=== PATIENT | female | born 1985 | race Two or more races ===

== ENCOUNTER 2025-10-04 10:26 | Inpatient (IN) | payer MEDICAID, OTHER ==
[~2025-10-04] VITALS: Ht 162.6 cm; Wt 88.3 kg
--- NOTE | 2025-10-04 11:27 | ED.PDOC ---
SOB-HPI HPI Comments 40y F who presents to the ED for chief complaint of shortness of breath. Pt states she has been having shortness of breath, upper back pain, chills, chest tightness, and generalized malaise for the past few weeks getting progressively worse. Pt states she started to have bruising last Saturday on her legs and got worried and came today to the ED for further evaluation. Pt in the ED, has otherwise stable vitals. Pt denies sick contacts. Pt denies any other symptoms at this time. Chief Complaint: Shortness of Breath Time Seen by MD: 11:19 Reviewed notes: Medications, Allergies Information Source: Patient Mode of Arrival: Ambulatory Brought in by: self Severity: Moderate Timing: Days, Weeks Duration: Since onset Context: At Rest PE Risk Factors: None History of: None Prehospital treatment: None Modifying Factors: Laying flat Associated Signs and Symptoms: Other (chills,) Past Medical History PAST MEDICAL HISTORY: High Lipids Surgical History: Denies all surgeries DECONTAMINATOR History: Denies all DECONTAMINATOR Hx Family History Family History: Family hx of DM Social History Smoker: Non-Smoker Alcohol: Denies ETOH Use Drugs: Denies Drug Use Lives In: Home Constitutional: reports: chills, weakness; denies: diaphoresis, fatigue, fever, malaise, sweats, others EENTM: denies: blurred vision, double vision, ear bleeding, ear discharge, ear drainage, ear pain, ear ringing, eye pain, eye redness, hearing loss, mouth pain, mouth swelling, nasal discharge, nose bleeding, nose congestion, nose pain, photophobia, tearing, throat pain, throat swelling, voice changes, others Respiratory: reports: shortness of breath; denies: cough, hemoptysis, orthopnea, SOB at rest, SOB with excertion, stridor, wheezing, others Cardiovascular: denies: chest pain, dizzy spells, diaphoresis, Dyspnea on exertion, edema, irregular heart beat, left arm pain, lightheadedness, palpitations, PND, syncope, others Gastrointestinal: denies: abdomen distended, abdominal pain, blood streaked bowels, constipated, diarrhea, dysphagia, difficulty swallowing, hematemesis, melena, nausea, poor appetite, poor fluid intake, rectal bleeding, rectal pain, vomiting, others Genitourinary: denies: abnormal vagina bleeding, burning, dyspareunia, dysuria, flank pain, frequency, hematuria, incontinence, pain, , vagina discharge, urgency, others Neurological: reports: dizziness; denies: fainting, headache, left sided numbness, left sided weakness, numbness, paresthesia, pre-existing deficit, right sided numbness, right sided weakness, seizure, speech problems, tingling, tremors, weakness, others Musculoskeletal: denies: back pain, gout, joint pain, joint swelling, muscle pain, muscle stiffness, neck pain, others Integumetry: denies: bruises, change in color, change in hair/nails, dryness, laceration, lesions, lumps, rash, wounds, others Allergic/Immunocompromised: denies: Difficulty Healing, Frequent Infections, Hives, Itching, others Hematologic/Lymphatic: denies: anemia, blood clots, easy bleeding, easy bruising, swollen glands, others Endocrine: denies: excessive hunger, excessive sweating, excessive thirst, excessive urination, flushing, intolerance to cold, intolerance to heat, unex plained weight gain, unexplained weight loss, others Psychiatric: denies: anxiety, bipolar disorder, depression, hopeless, panic disorder, schizophrenia, sleepless, suicidal, others All Other Systems: Reviewed and Negative Physical Exam General Appearance: Moderate Distress HEENT: Pale Conjuntivae (L), Pale Conjuntivae (R), Pharynx Normal, TMs Normal Neck: Full Range of Motion, Non-Tender, Normal, Normal Inspection Respiratory: Chest Non-Tender, Lungs Clear, No Accessory Muscle Use, No Respi ratory Distress, Normal Breath Sounds Cardiovascular: No Edema, No JVD, No Murmur, No Gallop, Normal Peripheral Pulses, Regular Rate/Rhythm Breast Exam: Deferred Gastrointestinal: No Organomegaly, Non Tender, No Pulsatile Mass, Normal Bowel Sounds, Soft Genitalia: Deferred Pelvic: Deferred Rectal: Deferred Extremities: No calf tenderness, Normal capillary refill, Normal inspection, Normal range of motion, Non-tender, No pedal edema Musculoskeletal : Apperance: Normal Neurologic: Alert, supplier diversity director II-XII nml as Tested, No Motor Deficits, Normal Affect, Normal Mood, No Sensory Deficits Cerebellar Function: Normal Reflexes: Normal Skin: Bruises, Dry, Pallor, Warm Lymphatic: No Adenopathy Was a procedure done? Was a procedure done?: No Differential Dx Differential Diagnosis: Asthma, Bronchitis, CHF, COPD, Pneumonia, Respiratory Distress, Pharyngitis, URI Comments uti, dehydration, anemia, influenza A and B, X-Ray, Labs, Meds, VS Vital Signs Date Time Temp Pulse Resp B/P (MAP) Pulse Ox O2 Delivery O2 Flow Rate FiO2 10/04/25 13:04 97.8 89 16 143/62 (89) 99 97.8 10/04/25 13:01 16 99 Room Air* 0 21 10/04/25 10:29 98.3 98 20 121/82 97 98.3 Lab Test 10/04/25 12:23 10/04/25 11:10 Range/Units Troponin I High Sensitivity < 3 L < 3 L </=34 ng/L White Blood Count 10.0 4.4-10.8 10^3/uL Red Blood Count 3.52 L 4.0-5.20 10^6/uL Hemoglobin 11.1 L 12.2-16.2 g/dL Hematocrit 33.0 L 36.0-46.0 % Mean Corpuscular Volume 93.7 80.0-100.0 fL Mean Corpuscular Hemoglobin 31.6 28.0-32.0 pg Mean Corpuscular Hemoglobin Concent 33.7 32.0-36.0 g/dL Red Cell Distribution Width 15.1 H 11.8-14.3 % Platelet Count 205 140-450 10^3/uL Mean Platelet Volume 6.7 L 6.9-10.8 fL Neutrophils (%) (Auto) 69.5 37.0-80.0 % Lymphocytes (%) (Auto) 22.5 10.0-50.0 % Monocytes (%) (Auto) 4.9 0.0-12.0 % Eosinophils (%) (Auto) 2.4 0.0-7.0 % Basophils (%) (Auto) 0.7 0.0-2.0 % Neutrophils # (Auto) 7.0 1.6-8.6 10 ^3/uL Lymphocytes # (Auto) 2.3 0.4-5.4 10 ^3/uL Monocytes # (Auto) 0.5 0-1.3 10 ^3/uL Eosinophils # (Auto) 0.2 0-0.8 10 ^3/uL Basophils # (Auto) 0.1 0-0.2 10 ^3/uL Nucleated Red Blood Cells 0.0 % Prothrombin Time 13.1 H 9.3-11.8 sec Prothrombin Time INR 1.26 H 0.9-1.15 Activated Partial Thromboplast Time 30.9 24.5-34.5 SEC D-Dimer, Quantitative 1.08 H 0.0-0.49 mg/L FEU Sodium Level 136 136-145 mmol/L Potassium Level 3.3 L 3.5-5.1 mmol/L Chloride Level 102 98-107 mmol/L Carbon Dioxide Level 26 20-31 mmol/L Anion Gap 8 5-15 Blood Urea Nitrogen 8 L 9-23 mg/dL Creatinine 0.82 0.550-1.02 mg/dL Glomerular Filtration Rate Calc 93 >90 mL/min BUN/Creatinine Ratio 9.8 L 10.0-20.0 Serum Glucose 105 74-106 mg/dL Calcium Level 8.8 8.7-10.4 mg/dL PROCEDURE(s): CXR2 - CHEST TWO VIEWS ROUTINE IMPRESSION: No pulmonary airspace consolidation. The patient's CBC is within normal limits The chemistry panel shows hypokalemia at 3.3 The troponin level is within normal limits. The patient is being admitted at this time The patient understands and agrees with the management. The D-dimer is 1.08 Because of the elevated D-dimer we did do a CAT scan of the chest to rule out PE. The patient is still symptomatic but the CAT scan is negative. The patient is being admitted at this time Images Reviewed?: Images reviewed and evaluated by me Time of 1ST Reevaluation: 11:50 Reevaluation 1ST: Unchanged Patient Education/Counseling: Diagnosis, Treatment, Prognosis Family Education/Counseling: Diagnosis, Treatment, Prognosis SEPSIS Sepsis Screen Date sepsis recognized/suspect: Oct 04, 2025 Time Sepsis recognized/suspect: 1027 Recent Procedure: No On Antibiotic Therapy: No Respiratory Rate >20: No Heart Rate >90: Yes Temp<36 C (96.8 F) or >38.3 C: No SBP <90 or MAP <65 mmHG: No New Acute Mental Status Change: No Is the patient on CPAP, BIPAP,: No Physician Orders Urinalysis (10/04/25 10:58) Chest Two Views Routine (10/04/25 10:58) Electrocardigram (10/04/25 10:58) Troponin-I Hs (10/04/25 13:58) Electrocardigram (10/04/25 11:58) Electrocardigram (10/04/25 13:58) Ct Angio Chest Contrast (10/04/25 12:27) Vital Signs Date Time Temp Pulse Resp B/P (MAP) Pulse Ox O2 Delivery O2 Flow Rate FiO2 10/04/25 13:04 97.8 89 16 143/62 (89) 99 97.8 10/04/25 13:01 16 99 Room Air* 0 21 10/04/25 10:29 98.3 98 20 121/82 97 98.3 Laboratory Tests Test 10/04/25 11:10 White Blood Count 10.0 10^3/uL (4.4-10.8) Departure 1 Departure Time of Disposition: 11:55 Impression: Primary Impression: Acute chest pain Disposition: ADMITTED INPATIENT Admit to: Tele Condition: Fair Critical Care Note Critical Care Time?: Yes (45 min-critical care time only) Stability Stability form required: Yes Unstable for transfer: Telemetry monitoring (Telemetry monitoring required), ED Physician Assesment (Clinical assesment) Heart Score Heart Score: Heart Score Response (Comments) Value History N/A 0 EKG N/A 0 Age N/A 0 Risk Factors N/A 0 Troponin N/A 0 Total 0 I personally scribed for CHRISTINA THURSTON MD ([email or web address]) on 10/04/25 at 11:27. Electronically submitted by Chiara Piña ([facility] I personally scribed for CHRISTINA THURSTON MD ([email or web address]) on 10/04/25 at 11:37. Electronically submitted by Chiara Piña ([employer]). CHRISTINA THURSTNO MD Oct 04, 2025 11:27
[2025-10-04 11:29] LABS: Hematocrit 33.0 % (36.0-46.0); Hemoglobin 11.1 g/dL (12.2-16.2); Mean Corpuscular Hemoglobin 31.6 pg (28.0-32.0); Mean Corpuscular Volume 93.7 fL (80.0-100.0); Nucleated Red Blood Cells % 0.0 %
--- NOTE | 2025-10-04 11:31 | DVH ---
CHEST RADIOGRAPH Indication: CP Technique: XY CHEST TWO VIEWS ROUTINE Comparison: None FINDINGS: The cardiac silhouette is unremarkable. The lungs demonstrate no pulmonary airspace consolidation. The pulmonary vasculature is unremarkable. There is no pleural effusion. There is no pneumothorax. IMPRESSION: No pulmonary airspace consolidation.
[2025-10-04 11:36] LABS: Chloride 102 mmol/L (98-107); Sodium 136 mmol/L (136-145)
[2025-10-04 11:37] LABS: Anion Gap 8 (5-15); Carbon Dioxide 26 mmol/L (20-31)
[2025-10-04 11:38] LABS: Calcium 8.8 mg/dL (8.7-10.4)
[2025-10-04 11:42] LABS: BUN/Creatinine Ratio 9.8 (10.0-20.0); Glucose 105 mg/dL (74-106)
[2025-10-04 11:46] LABS: Blood Urea Nitrogen 8 mg/dL (9-23); Potassium 3.3 mmol/L (3.5-5.1)
[2025-10-04 11:53] LABS: INR 1.26 (0.9-1.15); Partial Thromboplastin Time 30.9 SEC (24.5-34.5); Prothrombin Time 13.1 sec (9.3-11.8)
[2025-10-04 13:01] VITALS: RESP 16; O2SAT 99
[2025-10-04] MEDS: IOHEXOL 350 MG/ML 100ML IJ ONE (13:08)
--- NOTE | 2025-10-04 13:27 | DVH ---
CLINICAL INFORMATION: Shortness of breath. TECHNIQUE: Axial CTA images of the chest were obtained after the uneventful administration of 100 mL of Omnipaque 350 IV contrast. Coronal and sagittal reformatted images and MIP images were obtained, reviewed, and stored. One or more of the following dose reduction techniques were used: Automated exposure control. Adjustment of mA and/or kV according to patient size. CTDIvol = 21.59 mGy DLP = 728.69 mGy-cm COMPARISON: XY CHEST TWO VIEWS ROUTINE on DOS: 10/04/25 FINDINGS: Pulmonary arteries: Limited evaluation for pulmonary embolism due to suboptimal contrast opacification of the pulmonary arteries and respiratory motion artifact. No central pulmonary embolism visualized. Can not exclude lobar, segmental, or subsegmental pulmonary emboli. Aorta: No aneurysm or evidence of dissection. Cardiac: Heart size is within normal limits. [id number] coronary artery calcification. Mediastinum/melissa: No mass or adenopathy. Lungs: Respiratory motion artifact limits evaluation. Scattered areas of subsegmental atelectasis are seen. No focal consolidation, pneumothorax, or pleural effusion. Chest wall: No mass or other abnormality. Upper abdomen: Hepatic steatosis. Multiple very small subcentimeter low- attenuation lesions in the liver, possibly small cysts or biliary hamartomas, but too small to characterize. Bones: No acute fracture or suspicious intraosseous lesions. IMPRESSION: 1. Limited evaluation for pulmonary embolism for the reasons described above. No central pulmonary embolism visualized. Can not exclude lobar, segmental, or subsegmental pulmonary emboli. 2. Otherwise, no acute disease in the chest given the limitations of the examination. 3. Hepatic steatosis. 4. Additional findings as detailed above.
[2025-10-04 14:19] LABS: Urine Protein, UAD 3+ (Negative); Urine WBC Clumps PRESENT /hpf (None Seen)
--- NOTE | 2025-10-04 15:24 | DVHHP2 ---
History of Present Illness History of Present Illness A 40-year-old female with no significant PMHx presents with 2 weeks of malaise, shortness of breath, declining functional status, upper back pain, and chills. She states she came to the ED because she noticed new bruising on her back and legs starting Saturday (2 days ago). She also reports metrorrhagia: her LMP was the first week of September and lasted 7 days No recent trauma, medications, anticoagulants, supplements, or known bleeding disorders. ED Course CBC showed anemia (Hgb 11.1), MCV 93.7, MCH 31, platelets 205. Coagulation panel: PT mildly abnormal at 13.1, INR 1.26. UA showed protein 3+, blood 3+, bilirubin+, leukocyte esterase+, >1000 RBCs, consistent with hematuria and possible UTI. CMP: mild hypokalemia, normal creatinine. CTA chest: no central PE, no acute intrathoracic abnormality, EKG unrevealing. urine test pending Past Medical History No known chronic medical conditions. No surgeries. No medications. No known drug allergies. No prior similar episodes. Patient has 6 children she denies any miscarriages Social History No tobacco, alcohol, or drug use per patient. Lives at home. No primary care provider. Review of Systems Positive for bruising, metrorrhagia, malaise, chills, shortness of breath. Negative for fevers, syncope, gum bleeding, epistaxis, easy bleeding after minor cuts. Review of Systems Allergies: Coded Allergies: NO KNOWN ALLERGIES (Unverified , 10/04/25) Medications Current Medications Medications Dose Ordered Sig/Dinora Route Start Time Stop Time Status Last Admin Dose Admin Ceftriaxone Sodium 50 ml @ 100 mls/hr DAILY@09 IV 10/04/25 15:00 UNV Acetaminophen 325 mg Q4HP PRN PO 10/04/25 15:15 UNV Exam Vital Signs Vital Signs Date Time Temp Pulse Resp B/P (MAP) Pulse Ox O2 Delivery O2 Flow Rate FiO2 10/04/25 13:04 97.8 89 16 143/62 (89) 99 97.8 10/04/25 13:01 Room Air* 0 21 Exam General: Alert, oriented 3, tired appearing but non-toxic. HEENT: No scleral icterus, no conjunctival pallor, oropharynx moist. Neck: No LAD. CV: RRR, no murmurs, rubs, or gallops. Resp: CTAB, no wheezing/rales. Abdomen: Soft, NT/ND, no organomegaly. Back/Extremities: Multiple ecchymoses on lower back and bilateral legs in different stages of evolution. No petechiae. No edema. Skin: Warm, dry. Neuro: Nonfocal. Labs/Xrays Labs Test 10/04/25 13:47 10/04/25 12:23 10/04/25 11:10 Range/Units Urine Color Dark-orange Yellow Urine Clarity Ex.turbid Clear Urine pH 6.0 5.0-9.0 Urine Specific [place] 1.028 1.001-1.035 Urine Protein 3+ H Negative Urine Ketones Negative Negative Urine Blood 3+ H Negative /uL Urine Nitrite Negative Negative Urine Bilirubin 2+ H Negative Urine Urobilinogen 4 H Negative mg/dL Urine Leukocyte Esterase 2+ Negative /uL Urine RBC 1186 0 - 4 /hpf Urine WBC Clumps Present None Seen /hpf Urine Microscopic WBC 116 H 0-5 /HPF Urine Squamous Epithelial Cells Many <5 /hpf Urine Bacteria Few H None Seen /hpf Urine Mucus Few None Seen Urine Glucose Trace Normal mg/dL Troponin I High Sensitivity < 3 L </=34 ng/L White Blood Count 10.0 4.4-10.8 10^3/uL Red Blood Count 3.52 L 4.0-5.20 10^6/uL Hemoglobin 11.1 L 12.2-16.2 g/dL Hematocrit 33.0 L 36.0-46.0 % Mean Corpuscular Volume 93.7 80.0-100.0 fL Mean Corpuscular Hemoglobin 31.6 28.0-32.0 pg Mean Corpuscular Hemoglobin Concent 33.7 32.0-36.0 g/dL Red Cell Distribution Width 15.1 H 11.8-14.3 % Platelet Count 205 140-450 10^3/uL Mean Platelet Volume 6.7 L 6.9-10.8 fL Neutrophils (%) (Auto) 69.5 37.0-80.0 % Lymphocytes (%) (Auto) 22.5 10.0-50.0 % Monocytes (%) (Auto) 4.9 0.0-12.0 % Eosinophils (%) (Auto) 2.4 0.0-7.0 % Basophils (%) (Auto) 0.7 0.0-2.0 % Neutrophils # (Auto) 7.0 1.6-8.6 10 ^3/uL Lymphocytes # (Auto) 2.3 0.4-5.4 10 ^3/uL Monocytes # (Auto) 0.5 0-1.3 10 ^3/uL Eosinophils # (Auto) 0.2 0-0.8 10 ^3/uL Basophils # (Auto) 0.1 0-0.2 10 ^3/uL Nucleated Red Blood Cells 0.0 % Prothrombin Time 13.1 H 9.3-11.8 sec Prothrombin Time INR 1.26 H 0.9-1.15 Activated Partial Thromboplast Time 30.9 24.5-34.5 SEC D-Dimer, Quantitative 1.08 H 0.0-0.49 mg/L FEU Sodium Level 136 136-145 mmol/L Potassium Level 3.3 L 3.5-5.1 mmol/L Chloride Level 102 98-107 mmol/L Carbon Dioxide Level 26 20-31 mmol/L Anion Gap 8 5-15 Blood Urea Nitrogen 8 L 9-23 mg/dL Creatinine 0.82 0.550-1.02 mg/dL Glomerular Filtration Rate Calc 93 >90 mL/min BUN/Creatinine Ratio 9.8 L 10.0-20.0 Serum Glucose 105 74-106 mg/dL Calcium Level 8.8 8.7-10.4 mg/dL SEPSIS Sepsis Screen Date sepsis recognized/suspect: Oct 04, 2025 Time Sepsis recognized/suspect: 1303 Recent Procedure: No On Antibiotic Therapy: No Respiratory Rate >20: No Heart Rate >90: No Temp<36 C (96.8 F) or >38.3 C: No SBP <90 or MAP <65 mmHG: No New Acute Mental Status Change: No Is the patient on CPAP, BIPAP,: No Physician Orders Chest Two Views Routine (10/04/25 10:58) Electrocardigram (10/04/25 10:58) Electrocardigram (10/04/25 11:58) Electrocardigram (10/04/25 13:58) Ct Angio Chest Contrast (10/04/25 12:27) Admit (10/04/25 14:54) Code Status (10/04/25 14:54) Vital Signs .PER UNIT PROTOCOL (10/04/25 14:54) Review Orders With Adm.Md (10/04/25 14:54) Notify Md Of Changes From Base (10/04/25 14:54) Advance Directive (10/04/25 14:54) Patient Condition (10/04/25 14:54) Allergies (10/04/25 14:54) Oxygen By Nasal Cannula (10/04/25 14:54) Stat Ekg For Chest Pain (10/04/25 14:54) Notify Md Of Changes From Base (10/04/25 14:54) Powder Coater For 24 Hours (10/04/25 14:54) Emergency Dysrhythmia Protocol (10/04/25 14:54) Rhythm Strips Once Every Shift (10/04/25 14:54) Lactate Dehydrogenase (10/04/25 14:54) Erythrocyte Sedimentation Rate (10/04/25 14:54) Haptoglobin (10/04/25 14:54) Daphne; Direct (10/04/25 14:54) Jurado Stain Slide (10/04/25 14:54) Thyroid Stimulating Hormone (10/04/25 14:54) Direct Aly (10/04/25 14:54) Hepatic Panel (10/04/25 14:54) Ceftriaxone 1gm/50ml (Rocephin) (10/04/25 15:00) Drug Screen (10/04/25 14:54) Iron Panel (10/04/25 14:54) Ferritin (10/04/25 14:54) Vitamin B12 (10/04/25 14:54) Folate (Folic Acid) (10/04/25 14:54) Pelvic (10/04/25 14:54) Acetaminophen Tablet (Tylenol Tablet) (10/04/25 15:15) Potassium Er Tablet (Klor-Con Tablet) (10/04/25 15:15) Stool Occult Blood (10/04/25 15:08) Vital Signs Date Time Temp Pulse Resp B/P (MAP) Pulse Ox O2 Delivery O2 Flow Rate FiO2 10/04/25 13:04 97.8 89 16 143/62 (89) 99 97.8 10/04/25 13:01 16 99 Room Air* 0 21 10/04/25 10:29 98.3 98 20 121/82 97 98.3 Laboratory Tests Test 10/04/25 11:10 White Blood Count 10.0 10^3/uL (4.4-10.8) Assessment/Plan Assessment/Plan 1. Chest pain 1.1. PE ruled out 1.2. ACS ruled out CT chest: CTA chest: no central PE, no acute intrathoracic abnormality, EKG unrevealing. Troponins negative Pending ECHO 2. Bruising / Ecchymosis with Normal Platelets Possible Coagulopathy vs Vasculitis vs Hematologic Disorder vs Secondary to UTI/Inflammation Normal platelet count with unexplained bruising raises concern for qualitative platelet dysfunction, factor deficiency, early DIC, autoimmune process, liver dysfunction, or vasculitic processes. Workup ordered: DAPHNE, ESR, CRP, iron panel, ferritin, folate, B12, LDH, haptoglobin, peripheral smear, TSH, drug screen. Plan: Trend hemoglobin. Monitor for new bruising. Consider hematology referral outpatient (not available inpatient). 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 2.1. Anemia (Hgb 11.1), Normocytic Etiology Unclear Normocytic profile; differential includes chronic inflammation, occult bleeding (metrorrhagia), hemolysis, renal disease, or marrow disorder. Plan: Full anemia panel as above. Review peripheral smear. Trend CBC. Check reticulocyte index. Evaluate for hematuria contribution (rare but UA shows significant blood). 3. Hematuria + Proteinuria 3+ Possible UTI vs Glomerular Process UA with 3+ blood, >1000 RBCs, leukocyte esterase positive may suggest UTI but proteinuria 3+ raises concern for glomerular pathology (IgA nephropathy, vasculitis, etc.). Plan: Start ceftriaxone for presumed UTI. Send urine culture. 4. Metrorrhagia Abnormal bleeding from dysfunctional uterine bleeding, hormonal imbalance, structural pathology, or coagulopathy. Plan: Pelvic ultrasound ordered. Check TSH Follow-up BODY REPAIRER outpatient. 5. Mild Hypokalemia Likely poor intake vs mild renal losses. Plan: Replete PO. Monitor BMP. 6. Shortness of Breath, Malaise, Back Pain No PE on CTA No central PE, no acute pulmonary disease. Symptoms likely related to systemic process (UTI, anemia, inflammatory condition). Plan: Symptomatic management. Reassess once infectious and hematologic workup returns. Case discussed with Dr Green Plan discussed with: Patient, Other (rn) My Orders Orders - EDSON JACOBSEN RESIDENT Procedure Category Date Status Time Admit ADMIT 10/04/25 Transmitted 14:54 Code Status CODE 10/04/25 Transmitted 14:54 Vital Signs DEBRA 10/04/25 In Process 14:54 Review Orders With [facility] 10/04/25 In Process Adm. 14:54 Notify Md Of Changes [facility] 10/04/25 In Process From Base 14:54 Advance Directive [facility] 10/04/25 In Process 14:54 Patient Condition ORDERS 10/04/25 Transmitted 14:54 Allergies [facility] 10/04/25 In Process 14:54 Oxygen By Nasal RT 10/04/25 Transmitted Cannula 14:54 Stat Ekg For Chest [facility] 10/04/25 In Process Pain 14:54 Notify Md Of Changes [facility] 10/04/25 In Process From Base 14:54 Powder Coater For [facility] 10/04/25 In Process 24 Hours 14:54 Emergency Dysrhythmia [facility] 10/04/25 In Process Protocol 14:54 Rhythm Strips Once [facility] 10/04/25 In Process Every Shift 14:54 Lactate Dehydrogenase LAB 10/04/25 Logged 14:54 Erythrocyte LAB 10/04/25 Logged Sedimentation Rate 14:54 Haptoglobin LAB 10/04/25 Logged 14:54 Daphne; Direct LAB 10/04/25 Logged 14:54 Jurado Stain Slide LAB 10/04/25 Logged 14:54 Thyroid Stimulating LAB 10/04/25 Logged Hormone 14:54 Direct Lay BBK 10/04/25 Logged 14:54 Hepatic Panel LAB 10/04/25 Logged 14:54 Ceftriaxone 1gm/50ml PHA 10/04/25 Logged (Rocephin) 15:00 Drug Screen LAB 10/04/25 Logged 14:54 Iron Panel LAB 10/04/25 Logged 14:54 Ferritin LAB 10/04/25 Logged 14:54 Vitamin B12 LAB 10/04/25 Logged 14:54 Folate (Folic Acid) LAB 10/04/25 Logged 14:54 Pelvic US 10/04/25 Logged 14:54 Acetaminophen Tablet PHA 10/04/25 Logged (Tylenol Tablet) 15:15 Potassium Er Tablet [facility] 10/04/25 Logged (Klor-Con Tablet) 15:15 Stool Occult Blood LAB 10/04/25 Logged 15:08 Date of Service: Oct 04, 2025 Billing Provider: ANDREW GREEN MD Common Visit Codes: [id number] INP/OBS CARE (HIGH) EDSON JACOBSEN RESIDENT Oct 04, 2025 15:24
[2025-10-04 15:44] LABS: Iron 107.0 ug/dL (50-170)
[2025-10-04 15:47] LABS: Total Iron Binding Capacity 252.0 ug/dL (250-425)
[2025-10-04 15:51] LABS: Ferritin 63.6 ng/mL (10-291)
[2025-10-04 15:51] LABS: Alanine Aminotransferase 23.0 U/L (7-40); Albumin 3.3 g/dL (3.2-4.8); Total Protein 8.1 g/dL (5.7-8.2)
[2025-10-04 15:53] LABS: Alkaline Phosphatase 340.0 U/L (46-116); Bilirubin, Direct 1.9 mg/dL (<0.3); Bilirubin, Total 3.1 mg/dL (0.2-1.0)
--- NOTE | 2025-10-04 15:57 | DVH ---
INDICATION: METRORRAGIA TECHNIQUE: Multiple real-time grayscale transabdominal sonographic images along with color and duplex Doppler of the uterus and ovaries were obtained. COMPARISON: None FINDINGS: The uterus measures 7.9 x 4.1 x 6.2 cm. Endometrium is cured by indwelling IUD. Right ovary measures 3.7 x 4 x 3.6 cm with normal Doppler color flow. There is a simple right ovarian cyst measuring 2.8 x 2 x 1.8 cm. Left ovary measures 3.4 x 1.7 x 2.6 cm with normal Doppler color flow IMPRESSION: No acute sonographic abnormality of the pelvis. IUD in satisfactory position
[2025-10-04 16:16] LABS: Thyroid Stimulating Hormone 6.66 uIU/mL (0.55-4.78)
[2025-10-04 17:00] VITALS: BP 119/67; PULSE 94; RESP 18; TEMP 97.6; O2SAT 99
[2025-10-04 17:24] LABS: Free T3 2.58 pg/mL (2.3-4.2)
[2025-10-04 17:25] LABS: Free T4 (Free Thyroxine) 1.67 ng/dL (0.89-1.76)
--- NOTE | 2025-10-04 17:32 | DVH ---
INDICATION: RULE OUT CHOLELITHIASIS TECHNIQUE: Multiple real-time sonographic images were obtained of the right upper quadrant. COMPARISON: None FINDINGS: The liver demonstrates increased echogenicity without focal mass lesions. The liver measures 23.9 cm. There is no intrahepatic or extrahepatic ductal dilatation. The common duct measures 5 mm. The gallbladder is without evidence of stone or sludge. The gallbladder wall measures 3 mm and is within normal limits. The right kidney measures 12.5 cm. The right kidney is normal in contour, size, and shape. The echogenicity is normal. There is no hydronephrosis. The pancreas is not well visualized due to overlying bowel gas. IMPRESSION: 1. No cholelithiasis or sonographic evidence of acute cholecystitis. 2. Hepatomegaly and increased hepatic echogenicity which may reflect hepatic steatosis or intrinsic hepatocellular disease.
[2025-10-04] MEDS: POTASSIUM CHL 20 Meq TABLET PO ONE (17:51)
[2025-10-04 19:00] VITALS: BP 118/66; PULSE 97; RESP 17; TEMP 98; O2SAT 98
[2025-10-04] MEDS: ACETAMINOPHEN 325 MG TAB PO PRN (19:57)
[2025-10-04 20:00] VITALS: PULSE 97; RESP 17; O2SAT 98
[2025-10-04 21:00] VITALS: BP 118/66; PULSE 97; RESP 17; TEMP 98; O2SAT 98
[2025-10-04 21:45] LABS: Amphetamine Screen, Urine Neg (NEGATIVE); Benzodiazephine Screen, Urine Neg (NEGATIVE)
[2025-10-04 21:46] LABS: Barbiturate Scree,Urine Neg (NEGATIVE); Cannabinoid Screen, Urine Neg (NEGATIVE); Cocaine Screen, Urine Neg (NEGATIVE); Opiate Scree,Urine Neg (NEGATIVE); Phencyclidine Screen, Urine Neg (NEGATIVE)
[2025-10-05] VITALS (8 sets, daily range): BP systolic 110–130; BP diastolic 63–75; PULSE 85–97; RESP 16–19; TEMP 97.2–98.3; O2SAT 96–98
[2025-10-05 07:54] LABS: Hematocrit 28.3 % (36.0-46.0); Hemoglobin 9.7 g/dL (12.2-16.2); Mean Corpuscular Hemoglobin 32.4 pg (28.0-32.0); Mean Corpuscular Volume 94.8 fL (80.0-100.0); Nucleated Red Blood Cells % 0.2 %
[2025-10-05 08:00] LABS: Alanine Aminotransferase 19 U/L (7-40); Anion Gap 10 (5-15); BUN/Creatinine Ratio 13.0 (10.0-20.0); Blood Urea Nitrogen 10 mg/dL (9-23); Carbon Dioxide 23 mmol/L (20-31); Chloride 105 mmol/L (98-107); Glucose 93 mg/dL (74-106); Potassium 4.2 mmol/L (3.5-5.1); Sodium 138 mmol/L (136-145); Total Protein 7.2 g/dL (5.7-8.2)
[2025-10-05 08:04] LABS: Albumin 2.9 g/dL (3.2-4.8); Alkaline Phosphatase 295 U/L (46-116); Bilirubin, Total 2.6 mg/dL (0.2-1.0); Calcium 8.5 mg/dL (8.7-10.4)
--- NOTE | 2025-10-05 13:41 | DVHPN2 ---
Subjective no chest pain Reviewed: H&P Changes from previous H/P or p: No Changes Objective Vitals Vital Signs Date Time Temp Pulse Resp B/P (MAP) Pulse Ox O2 Delivery O2 Flow Rate FiO2 10/05/25 13:00 98.2 91 17 130/65 (86) 97 98.2 10/05/25 08:00 Room Air* 0 21 Intake/Output Intake and Output 10/05/25 07:00 Intake Total 650 ml Balance 650 ml Intake Oral 600 ml IV Total 50 ml # Voids 3 General Appearance: Alert, Oriented X3 HEENT: Atraumatic Lungs: Clear to auscultation Cardiovascular: Regular rate, Normal S1, Normal S2 Medications Current Medications Medications Dose Ordered Sig/Dinora Route Start Time Stop Time Status Last Admin Dose Admin Ceftriaxone Sodium 50 ml @ 100 mls/hr DAILY@09 IV 10/04/25 15:00 10/05/25 09:09 100 MLS/HR Acetaminophen 325 mg Q4HP PRN PO 10/04/25 15:15 10/04/25 19:57 325 MG Laboratory Results Laboratory Tests 10/05/25 07:05 Chemistry Test 10/05/25 07:05 Albumin 2.9 g/dL (3.2-4.8) L Calcium Level 8.5 mg/dL (8.7-10.4) L Total Protein 7.2 g/dL (5.7-8.2) LFT Test 10/05/25 07:05 Alanine Aminotransferase (ALT) 19 U/L (7-40) Alkaline Phosphatase 295 U/L (46-116) H Aspartate Amino Transferase (AST) 70 U/L (13-40) H Total Bilirubin 2.6 mg/dL (0.2-1.0) H Urinalysis Test 10/04/25 13:47 Urine Color Dark-orange (Yellow) Urine Clarity Ex.turbid (Clear) Urine pH 6.0 (5.0-9.0) Urine Specific [place] 1.028 (1.001-1.035) Urine Protein 3+ (Negative) H Urine Ketones Negative (Negative) Urine Blood 3+ /uL (Negative) H Urine Nitrite Negative (Negative) Urine Bilirubin 2+ (Negative) H Urine Urobilinogen 4 mg/dL (Negative) H Urine Leukocyte Esterase 2+ /uL (Negative) Urine RBC 1186 /hpf (0 - 4) Urine WBC Clumps Present /hpf (None Seen) Urine Microscopic WBC 116 /HPF (0-5) H Urine Squamous Epithelial Cells Many /hpf (<5) Urine Bacteria Few /hpf (None Seen) H Urine Mucus Few (None Seen) Urine Glucose Trace mg/dL (Normal) Urine Test Negative (Negative) Microbiology Microbiology Date/Time Source Procedure Growth Status 10/04/25 13:47 Voided Urine Urine Culture - Preliminary No growth Resulted Assessment/Plan Assessment/Plan 1. Chest pain 1.1. PE ruled out 1.2. ACS ruled out CT chest: CTA chest: no central PE, no acute intrathoracic abnormality, EKG unrevealing. Troponins negative Pending ECHO 2. Bruising / Ecchymosis with Normal Platelets Possible Coagulopathy vs Vasculitis vs Hematologic Disorder vs Secondary to UTI/Inflammation Normal platelet count with unexplained bruising raises concern for qualitative platelet dysfunction, factor deficiency, early DIC, autoimmune process, liver dysfunction, or vasculitic processes. Workup ordered: DARYL, ESR, CRP, iron panel, ferritin, folate, B12, LDH, haptoglobin, peripheral smear, TSH, drug screen. Plan: Trend hemoglobin. Monitor for new bruising. Consider hematology referral outpatient (not available inpatient). 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 2.1. Anemia (Hgb 11.1), Normocytic Etiology Unclear Normocytic profile; differential includes chronic inflammation, occult bleeding (metrorrhagia), hemolysis, renal disease, or marrow disorder. Plan: Full anemia panel as above. Review peripheral smear. Trend CBC. Check reticulocyte index. Evaluate for hematuria contribution (rare but UA shows significant blood). 3. Hematuria + Proteinuria 3+ Possible UTI vs Glomerular Process UA with 3+ blood, >1000 RBCs, leukocyte esterase positive may suggest UTI but proteinuria 3+ raises concern for glomerular pathology (IgA nephropathy, vasculitis, etc.). Plan: Start ceftriaxone for presumed UTI. Send urine culture. 4. Metrorrhagia Abnormal bleeding from dysfunctional uterine bleeding, hormonal imbalance, structural pathology, or coagulopathy. Plan: Pelvic ultrasound ordered. Check TSH Follow-up [facility] outpatient. 5. Mild Hypokalemia Likely poor intake vs mild renal losses. Plan: Replete PO. Monitor BMP. 6. Shortness of Breath, Malaise, Back Pain No PE on CTA Plan discussed with: Patient Date of Service: Oct 05, 2025 Billing Provider: ZAIRE OSUNA MD Common Visit Codes: [id number] INP/OBS CARE(HIGH) ZAIRE OSUNA MD Oct 05, 2025 13:41
[2025-10-06 01:00] VITALS: BP 125/88; PULSE 108; RESP 16; TEMP 98.6; O2SAT 97
[2025-10-06 05:00] VITALS: BP 120/79; PULSE 98; RESP 17; TEMP 97.9; O2SAT 97
[2025-10-06 08:00] VITALS: PULSE 85; RESP 20; O2SAT 98
[2025-10-06 09:00] VITALS: BP 124/67; PULSE 85; RESP 20; TEMP 98.2; O2SAT 98
[2025-10-06 10:07] LABS: Anti-Nuclear Antibody Direct Negative (Negative)
[2025-10-06 10:18] LABS: Hematocrit 31.5 % (36.0-46.0); Hemoglobin 10.5 g/dL (12.2-16.2); Mean Corpuscular Hemoglobin 31.5 pg (28.0-32.0); Mean Corpuscular Volume 94.9 fL (80.0-100.0); Nucleated Red Blood Cells % 0.0 %
[2025-10-06 10:27] LABS: Anion Gap 10 (5-15); Carbon Dioxide 24 mmol/L (20-31); Chloride 105 mmol/L (98-107); Potassium 3.6 mmol/L (3.5-5.1); Sodium 139 mmol/L (136-145)
[2025-10-06 10:29] LABS: Calcium 9.2 mg/dL (8.7-10.4)
[2025-10-06 10:34] LABS: BUN/Creatinine Ratio 12.2 (10.0-20.0); Blood Urea Nitrogen 9 mg/dL (9-23)
[2025-10-06 10:35] LABS: Glucose 117 mg/dL (74-106)
[2025-10-06 11:19] LABS: Hepatitis B Surface Antigen Negative (Negative); Hepatitis C Antibody Negative (Negative)
[2025-10-06 11:19] LABS: Hepatitis B Surface Antigen Negative (Negative); Hepatitis C Antibody Negative (Negative)
[2025-10-06] MEDS ORDERED: BACDST PO (11:33)
--- NOTE | 2025-10-06 12:17 | DVHDS2 ---
Discharge Summary Date of Admission Oct 04, 2025 at 14:54 Date of Discharge: Oct 06, 2025 Labs/Diagnostic Data: Laboratory Results Test 10/06/25 09:58 10/05/25 07:05 10/04/25 15:21 10/04/25 13:47 White Blood Count 8.5 10^3/uL (4.4-10.8) Red Blood Count 3.32 10^6/uL (4.0-5.20) Hemoglobin 10.5 g/dL (12.2-16.2) Hematocrit 31.5 % (36.0-46.0) Mean Corpuscular Volume 94.9 fL (80.0-100.0) Mean Corpuscular Hemoglobin 31.5 pg (28.0-32.0) Mean Corpuscular Hemoglobin Concent 33.2 g/dL (32.0-36.0) Red Cell Distribution Width 15.8 % (11.8-14.3) Platelet Count 195 10^3/uL (140-450) Mean Platelet Volume 6.7 fL (6.9-10.8) Neutrophils (%) (Auto) 68.5 % (37.0-80.0) Lymphocytes (%) (Auto) 22.5 % (10.0-50.0) Monocytes (%) (Auto) 5.5 % (0.0-12.0) Eosinophils (%) (Auto) 2.7 % (0.0-7.0) Basophils (%) (Auto) 0.8 % (0.0-2.0) Neutrophils # (Auto) 5.8 10 ^3/uL (1.6-8.6) Lymphocytes # (Auto) 1.9 10 ^3/uL (0.4-5.4) Monocytes # (Auto) 0.5 10 ^3/uL (0-1.3) Eosinophils # (Auto) 0.2 10 ^3/uL (0-0.8) Basophils # (Auto) 0.1 10 ^3/uL (0-0.2) Nucleated Red Blood Cells 0.0 % Sodium Level 139 mmol/L (136-145) Potassium Level 3.6 mmol/L (3.5-5.1) Chloride Level 105 mmol/L (98-107) Carbon Dioxide Level 24 mmol/L (20-31) Anion Gap 10 (5-15) Blood Urea Nitrogen 9 mg/dL (9-23) Creatinine 0.74 mg/dL (0.550-1.02) Glomerular Filtration Rate Calc 105 mL/min (>90) BUN/Creatinine Ratio 12.2 (10.0-20.0) Serum Glucose 117 mg/dL (74-106) Calcium Level 9.2 mg/dL (8.7-10.4) Total Bilirubin 2.6 mg/dL (0.2-1.0) Aspartate Amino Transferase (AST) 70 U/L (13-40) Alanine Aminotransferase (ALT) 19 U/L (7-40) Alkaline Phosphatase 295 U/L (46-116) Total Protein 7.2 g/dL (5.7-8.2) Albumin 2.9 g/dL (3.2-4.8) Hepatitis A IgM Antibody Negative Hepatitis B Surface Antigen Negative (Negative) Hepatitis B Core IgM Antibody Negative (Negative) Hepatitis C Antibody Negative (Negative) Haptoglobin 112 mg/dL (33-278) Gamma Glutamyl Transpeptidase 806 U/L (<38) Free Thyroxine (T4) Calculated 1.67 ng/dL (0.89-1.76) Free Triiodothyronine (T3) pg/mL 2.58 pg/mL (2.3-4.2) Anti-Nuclear Antibody Screen Negative (Negative) Urine Color Dark-orange (Yellow) Urine Clarity Ex.turbid (Clear) Urine pH 6.0 (5.0-9.0) Urine Specific [place] 1.028 (1.001-1.035) Urine Protein 3+ (Negative) Urine Ketones Negative (Negative) Urine Blood 3+ /uL (Negative) Urine Nitrite Negative (Negative) Urine Bilirubin 2+ (Negative) Urine Urobilinogen 4 mg/dL (Negative) Urine Leukocyte Esterase 2+ /uL (Negative) Urine RBC 1186 /hpf (0 - 4) Urine WBC Clumps Present /hpf (None Seen) Urine Microscopic WBC 116 /HPF (0-5) Urine Squamous Epithelial Cells Many /hpf (<5) Urine Bacteria Few /hpf (None Seen) Urine Mucus Few (None Seen) Urine Glucose Trace mg/dL (Normal) Urine Test Negative (Negative) Urine Opiates Screen Neg (NEGATIVE) Urine Fentanyl Screen Neg (NEGATIVE) Urine Barbiturates Screen Neg (NEGATIVE) Urine Phencyclidine Screen Neg (NEGATIVE) Urine Amphetamines Screen Neg (NEGATIVE) Urine Benzodiazepines Screen Neg (NEGATIVE) Urine Cocaine Screen Neg (NEGATIVE) Urine Cannabinoids Screen Neg (NEGATIVE) Test 10/04/25 12:23 10/04/25 11:10 Direct Bilirubin 1.9 mg/dL (<0.3) Lactate Dehydrogenase 152 U/L (120-246) Troponin I High Sensitivity < 3 ng/L (</=34) Thyroid Stimulating Hormone (TSH) 6.66 uIU/mL (0.55-4.78) Erythrocyte Sedimentation Rate 91 mm/hr (0-20) Prothrombin Time 13.1 sec (9.3-11.8) Prothrombin Time INR 1.26 (0.9-1.15) Activated Partial Thromboplast Time 30.9 SEC (24.5-34.5) D-Dimer, Quantitative 1.08 mg/L FEU (0.0-0.49) Iron Level 107 ug/dL (50-170) Total Iron Binding Capacity 252 ug/dL (250-425) Percent Iron Saturation 42.5 % (15-50) Ferritin 63.6 ng/mL (10-291) Vitamin B12 Level 1304 pg/mL (211-911) Folic Acid 5.29 ng/mL (>5.38) Other Laboratory Tests 10/06/25 09:58 Brief Hx & Hospital Course: 40-year-old female with no significant PMHx presents with 2 weeks of malaise, shortness of breath, declining functional status, upper back pain, and chills. She states she came to the ED because she noticed new bruising on her back and legs starting Saturday (2 days ago). She also reports metrorrhagia: her LMP was the first week of September and lasted 7 days No recent trauma, medications, anticoagulants, supplements, or known bleeding disorders. ED Course CBC showed anemia (Hgb 11.1), MCV 93.7, MCH 31, platelets 205. Coagulation panel: PT mildly abnormal at 13.1, INR 1.26. UA showed protein 3+, blood 3+, bilirubin+, leukocyte esterase+, >1000 RBCs, consistent with hematuria and possible UTI. CMP: mild hypokalemia, normal creatinine. CTA chest: no central PE, no acute intrathoracic abnormality, EKG unrevealing. urine test pending During hospital stay hb stable, hepatitis panel pending and also hemolytic workup Discussed with her that she needs to follow up with hematology Condition at Discharge: Good Final Diagnosis/Problems List acute cystitis with hematuria anemia Discharge Disposition: Home Discharge Instruct/Medications Diet: Regular Activity: No Restrictions, As Tolerated Follow Up/Referral: PCp and hematology in 7 days Medications: ciprofloxacin Scheduled Sulfamethoxazole W/Trimethopri (Bactrim Ds Tablet), 1 TAB PO BID Discharge Statement: "Patient was advised to return to the ER or call 911 if any headaches, dizziness, shortness of breath, chest pain, abdominal pain, bleeding, fevers, or worsening of medical condition. Patient was counseled about treatment plan, medications, possible side effects, patientverbalized understanding. All questions were answered to the best of my ability. This discharge took greater then 30 minutes in planning, reviewing documentation, counseling the patient, and discussing with other team members." ASSESSMENT ASSESSMENT Assessment acute cystitis with hematuria anemia Date of Service: Oct 06, 2025 Billing Provider: ZAIRE OSUNA MD Common Visit Codes: [id number] DISCH DAY >30min ZAIRE OSUNA MD Oct 06, 2025 12:17
[2025-10-06 13:00] VITALS: BP 138/78; PULSE 83; RESP 20; TEMP 97.4; O2SAT 98
[2025-10-06 13:22] VITALS: TEMP 36.8
--- NOTE | 2025-10-07 16:45 | DVHSR ---
APPROVED REPORT EXAM: Two-dimensional and M-mode echocardiogram with Doppler and color Doppler. Blood Pressure: 120/79 mmHg INDICATION Chest Pain RISK FACTORS Height: 64, Weight: 194 DIMENSIONS LVDd 5.1 (3.8-5.7cm) LA (2D) 4.4 (1.9-4.0cm) Aortic Root 2.9 (2.0-3.7cm) LVDs 3.3 (2.5-4.0cm) LA (MM) (1.9-4.0cm) Aortic Cusp Exc 1.7 (1.5-2.0cm) EF (%) 60.0 (55-70%) Rt. Atrium 4.4 (1.9-4.0cm) Asc. Aorta 2.9 cm IVSd 0.7 (0.7-1.1cm) RV (D) 4.0 (1.8-2.4cm) PWd 0.8 (0.7-1.1cm) Mitral Valve Mitral Mitral Stenosis E wave 1.07m/s MV Mean GR. mmHg A wave 0.71m/s MV Peak GR. 91mmHg E/A ratio 1.5 2D MVA cm2 DECEL Time 173ms PRESS 1/2 Time ms Aortic Valve Aortic Valve Aortic Stenosis V1 1.56m/s AO Mean GR. 6mmHg V2 1.58m/s AO Peak GR. 10mmHg LVOT Diameter 2.0 (1.8-2.4cm) Doppler [place] 3.10cm2 Pulmonic Valve V2 1.04m/s Tricuspid Valve TR Velocity 2.99m/s RVSP 30mmHg Other Information Quality : Technically Limited Rhythm : Conclusion LVEF normal 50-55%. Mild diastolic dysfunction Right ventricle size and function normal Mild pulmonary hypertension 40-45 mm Hg
== END 2025-10-06 14:23 | disposition home or self-care (01) | DRG 463 ==
LOC: ER 10:26 → OVERFLOW 14:54 → CENTRAL 10-05 20:34
PROVIDERS: ADMIT Hospitalist; ATTEND Hospitalist
DX: N30.01 Acute cystitis with hematuria (principal); D68.9 Coagulation defect, unspecified; S20.229A Contusion of unspecified back wall of thorax, initial encounter; D64.9 Anemia, unspecified; E87.6 Hypokalemia; E78.5 Hyperlipidemia, unspecified; N92.1 Excessive and frequent menstruation with irregular cycle; N93.8 Other specified abnormal uterine and vaginal bleeding; X58.XXXA Exposure to other specified factors, initial encounter; Z83.3 Family history of diabetes mellitus; Y93.89 Activity, other specified; Y92.89 Other specified places as the place of occurrence of the external cause; Y99.8 Other external cause status
CPT/HCPCS: 36415; 71046; 71275; 76705; 76856; 80048; 80053; 80074; 80076; 80307; 81001; 81025; 82607; 82728; 82746; 82977; 83010; 83540; 83550; 83615; 84439; 84443; 84481; 84484; 85025; 85379; 85610; 85652; 85730; 86038; 86880; 87086; 93306; 96365; 99291; G0378